=== PATIENT | female | born 1985 | race Caucasian/White ===

== ENCOUNTER 2017-04-07 17:05 | Emergency (ER) | payer MEDICAID ==
--- NOTE | 2017-04-07 18:18 | RAD ---
Indication: No bowel movement since April 02, 2017. Lower abdominal pain, bloating. Vomiting since Saturday after eating. Comparison: No relevant prior exams available on the [facility] [place] PACS for comparison. Technique: Supine and upright views of the abdomen. Report: No radiographic evidence for free air. Unremarkable bowel gas pattern. Moderate stool in the colon without significant rectal distension. No suspicious calcifications or mass effect. Unremarkable soft tissue contours. Unremarkable soft tissue contours. Clear visualized lung bases. IMPRESSION: No evidence for bowel obstruction. Negative for significant rectal distention with stool. No acute abdominal pelvic pathologic process evident.
[2017-04-07 19:11] VITALS: BP 117/56
--- NOTE | 2017-04-07 19:51 | UC ---
Abdominal Pain Female HPI - HPI Summary HPI Summary: no +bm for 4 days feels bloated, eating and currently drinking water without vomiting has tried enema and laxatives with out relief - History of Current Complaint Chief Complaint: UCAbdominalPain Stated Complaint: PERSONAL Time Seen by Provider: 04/07/17 19:26 Hx Obtained From: Patient Hx Last Menstrual Period: 2 wks ago ?: No Onset/Duration: Gradual Onset, Lasting Days - 4, Still Present Timing: Constant Severity Initially: Mild Severity Currently: Mild Location: Diffuse Radiates: No Character: Cramping Aggravating Factor(s): Food Alleviating Factor(s): Nothing Associated Signs and Symptoms: Positive: Negative Allergies/Adverse Reactions: Allergies Allergy/AdvReac Type Severity Reaction Status Date / Time No Known Allergies Allergy Verified 04/24/16 09:40 PMH/Surg Hx/FS Hx/Imm Hx Previously Healthy: Yes - Surgical History Surgery Procedure, Year, and Place: c-sections x 2 - Family History Known Family History: Positive: None - Social History Occupation: Employed Full-time Lives: With Family Alcohol Use: Occasionally Substance Use Type: None Smoking Status (MU): Light Every Day Tobacco Smoker Review of Systems Constitutional: Negative Skin: Negative Eyes: Negative ENT: Negative Respiratory: Negative Cardiovascular: Negative Gastrointestinal: Abdominal Pain, Nausea Genitourinary: Negative Motor: Negative Neurovascular: Negative Musculoskeletal: Negative Neurological: Negative Psychological: Negative All Other Systems Reviewed And Are Negative: Yes Physical Exam Triage Information Reviewed: Yes Appearance: Well-Appearing, No Pain Distress, Well-Nourished Vital Signs: Initial Vital Signs Temp 98.6 F 04/07/17 17:29 Pulse 76 04/07/17 17:29 Resp 12 04/07/17 17:29 BP 136/77 04/07/17 17:29 Pulse Ox 100 04/07/17 17:29 Vital Signs Reviewed: Yes Eye Exam: Normal Eyes: Positive: Conjunctiva Clear ENT Exam: Normal ENT: Positive: Normal ENT inspection, Hearing grossly normal, Pharynx normal, TMs normal. Negative: Nasal congestion, Nasal drainage, Trismus, Muffled/ hoarse voice Dental Exam: Normal Neck exam: Normal Neck: Positive: Supple, Nontender Respiratory Exam: Normal Respiratory: Positive: Chest non-tender, Lungs clear, Normal breath sounds, No respiratory distress, No accessory muscle use Cardiovascular Exam: Normal Cardiovascular: Positive: RRR, No Murmur, Pulses Normal, Brisk Capillary Refill Abdominal Exam: Normal Abdomen Description: Positive: No Organomegaly, Soft. Negative: CVA Tenderness (R), CVA Tenderness (L), Distended, Guarding, Hernia @, Hepatomegaly, McBurney' s Point Tenderness, Peritoneal Signs, Pulsatile Mass Bowel Sounds: Positive: Present Musculoskeletal Exam: Normal Musculoskeletal: Positive: Strength Intact, ROM Intact, No Edema Neurological Exam: Normal Neurological: Positive: Alert, Muscle Tone Normal Psychological Exam: Normal Skin Exam: Normal Diagnostics - Laboratory Diagnostic Studies Completed/Ordered: moderate amount of stool no evidence of obstruction or pathology Abd Pain Female Course/Dx - Course Course Of Treatment: increase fluids, miralax 1-2 times a day, follow with pcp - Differential Dx/Diagnosis Differential Diagnosis: Constipation, Diverticulitis, Irritable Bowel Syndrome Provider Diagnoses: constipation Discharge - Discharge Plan Condition: Stable Disposition: HOME Prescriptions: Polyethylene Glycol 3350* [Miralax*] 17 gm PO DAILY #15 packet Patient Education Materials: Simethicone (By mouth), Constipation (ED) Referrals: [facility] [place] PHYSICIAN REFERRAL [Outside] - 3 Days
== END 2017-04-07 19:52 | disposition home or self-care (01) ==
LOC: MERGE 17:05 → UCEAST 17:05
DX: K59.00 Constipation, unspecified (principal); F17.210 Nicotine dependence, cigarettes, uncomplicated
CPT/HCPCS: 74020; 99202; G0463

== ENCOUNTER 2017-04-08 22:30 | Emergency (ER) | payer MEDICAID, OTHER ==
[2017-04-09] MEDS ORDERED: NS 0.9% 1000 ML* 1,000 ML IV ONE (00:57)
[2017-04-09 02:39] LABS: Add Diff/Slide Review? Slide Review Added; Comments Flag Yes; Hematocrit 45 % (35-47); Hemoglobin 15.1 g/dl (12.0-16.0); Mean Corpuscular HGB Conc 34 g/dl (31-36); Mean Corpuscular Hemoglobin 32 pg (27-31); Mean Corpuscular Volume 95 fL (80-97); Mean Platelet Volume 9 um3 (7.4-10.4); Red Cell Distribution Width 13 % (10.5-15); White Blood Count 9.5 10^3/ul (3.5-10.8)
[2017-04-09 02:48] LABS: ALT 9 U/L (7-52); AST 16 U/L (13-39); Albumin 4.5 g/dL (3.2-5.2); Alkaline Phosphatase 51 U/L (34-104); Anion Gap 7 mmol/L (2-11); BUN/Creatinine Ratio 12.2 (8-20); Blood Urea Nitrogen 9 mg/dL (6-24); C Reactive Protein < 1.00 mg/L (< 5.00); CO2 Carbon Dioxide 27 mmol/L (22-32); Calcium 9.4 mg/dL (8.6-10.3); Chloride 103 mmol/L (101-111); EGFR African American 117.7 (>60); EGFR Non-African American 91.5 (>60); Globulin 3.1 g/dL (2-4); Glucose 88 mg/dL (70-100); Lipase 22 U/L (11.0-82.0); Potassium 3.6 mmol/L (3.5-5.0); Sodium 137 mmol/L (133-145); Total Protein 7.6 g/dL (6.4-8.9)
[2017-04-09] MEDS ORDERED: Iohexol 300* (CONTRAST) 10 ML SDV IV ONE (03:18)
[2017-04-09] MEDS ORDERED: Magnesium CITRATE* 300 ML BTL PO ONE (04:48)
--- NOTE | 2017-04-09 05:00 | ED ---
I, Oh,Isaura, scribed for Cliff Oliveira MD on 04/09/17 at 0055 . GI/ HPI - HPI Summary HPI Summary: This 31 y/o female presents to ED for persistent constipation since 6 days ago. Mild flatulance. Positive back pain, n/v x1 3 days ago, and abd bloating that is worse with PO intake. Pt reports she has had "brown water" but no bowel movement. She took multiple laxative today, which includes "Melony stool softener" pills, X-Lax, prune juice, glycerin suppositories, and enema. PSHx includes "bikini scar" and Bikini scar x2. She denies any Hx of bowel obstruction. - History of Current Complaint Chief Complaint: EDAbdPain Time Seen by Provider: 04/09/17 00:09 Stated Complaint: CONSTIPATION Hx Obtained From: Patient, Medical Records Hx Last Menstrual Period: 2 wks ago Onset/Duration: Started Weeks Ago, Still Present Timing: Constant Pain Intensity: 7 Location of Pain: RLQ, LLQ Associated Signs and Symptoms: Positive: Back Pain - lower back pain, Constipation Aggravating Factor(s): Food Alleviating Factor(s): Nothing - Allergy/Home Medications Allergies/Adverse Reactions: Allergies Allergy/AdvReac Type Severity Reaction Status Date / Time No Known Allergies Allergy Verified 04/07/17 17:34 PMH/Surg Hx/FS Hx/Imm Hx Cardiovascular History: Denies: Hx Hypertension GI History: Denies: Hx Obstructive Bowel - Surgical History Surgery Procedure, Year, and Place: c-sections x 2 Infectious Disease History: No Infectious Disease History: Denies: Traveled Outside the [place] in Last 30 Days - Family History Known Family History: Negative: Hypertension - Social History Alcohol Use: Rare Hx Substance Use: No Substance Use Type: Reports: None Hx Tobacco Use: Yes Smoking Status (MU): Light Every Day Tobacco Smoker Review of Systems Negative: Fever Positive: Abdominal Pain - lower abd pain, Vomiting, Nausea, Other - "gurgly stomach" All Other Systems Reviewed And Are Negative: Yes Physical Exam - Summary Physical Exam Summary: The patient is well-nourished in no acute distress and in no acute pain. The skin is warm and dry and skin color reflects adequate perfusion. HEENT: The head is normocephalic and atraumatic. The pupils are equal and reactive. The conjunctivae are clear and without drainage. Nares are patent and without drainage. Mouth reveals moist mucous membranes and the throat is without erythema and exudate. The external ears are intact. The ear canals are patent and without drainage. The tympanic membranes are intact. Neck is supple with full range of motion and non-tender. There are no carotid bruits. There is no neck vein distension. Respiratory: Chest is non-tender. Lungs are clear to auscultation and breath sounds are symmetrical and equal. Cardiovascular: Heart is regular rate and rhythm. There is no murmur or rub auscultated. There is no peripheral edema and pulses are symmetrical and equal. Abdomen: The abdomen is soft and MILD bilat lower quadrant tenderness. There are HYPERACTIVE bowel sounds heard in all four quadrants and there is no organomegaly palpated. Negative CVA tenderness. Musculoskeletal: There is MILD lower back pain noted. Extremities are non- tender with full range of motion. There is good capillary refill. There is no peripheral edema or calf tenderness elicited. Neurological: Patient is alert and oriented to person, place and time. The patient has symmetrical motor strength in all four extremities. Cranial nerves are grossly intact. Deep tendon reflexes are symmetrical and equal in all four extremities. Psychiatric: The patient has an appropriate affect and does not exhibit any anxiety or depression. Triage Information Reviewed: Yes Vital Signs On Initial Exam: Initial Vitals Temp Pulse Resp BP Pulse Ox 97.8 F 74 20 117/64 100 04/08/17 22:39 04/08/17 22:39 04/08/17 22:39 04/08/17 22:39 04/08/17 22:39 Vital Signs Reviewed: Yes - Ida Coma Scale Coma Scale Total: 15 Diagnostics - Vital Signs Vital Signs Temp Pulse Resp BP Pulse Ox 04/09/17 00:02 98.4 F 71 18 121/69 100 04/08/17 22:39 97.8 F 74 20 117/64 100 - Laboratory Lab Results: Lab Results 04/09/17 04/09/17 Range/Units 02:10 02:10 WBC 9.5 (3.5-10.8) 10^3/ul RBC 4.70 (4.0-5.4) 10^6/ul Hgb 15.1 (12.0-16.0) g/dl Hct 45 (35-47) % MCV 95 (80-97) fL MCH 32 H (27-31) pg MCHC 34 (31-36) g/dl RDW 13 (10.5-15) % Plt Count 256 (150-450) 10^3/ul MPV 9 (7.4-10.4) um3 Neut % (Auto) 63.8 (38-83) % Lymph % (Auto) 28.2 (25-47) % Beadle % (Auto) 5.4 (1-9) % Eos % (Auto) 0.5 (0-6) % Baso % (Auto) 2.1 H (0-2) % Absolute Neuts (auto) 6.0 (1.5-7.7) 10^3/ul Absolute Lymphs (auto) 2.7 (1.0-4.8) 10^3/ul Absolute Monos (auto) 0.5 (0-0.8) 10^3/ul Absolute Eos (auto) 0 (0-0.6) 10^3/ul Absolute Basos (auto) 0.2 (0-0.2) 10^3/ul Absolute Nucleated RBC 0 10^3/ul Nucleated RBC % 0 Sodium 137 (133-145) mmol/L Potassium 3.6 (3.5-5.0) mmol/L Chloride 103 (101-111) mmol/L Carbon Dioxide 27 (22-32) mmol/L Anion Gap 7 (2-11) mmol/L BUN 9 (6-24) mg/dL Creatinine 0.74 (0.51-0.95) mg/dL Est GFR ( Amer) 117.7 (>60) Est GFR (Non-Af Amer) 91.5 (>60) BUN/Creatinine Ratio 12.2 (8-20) Glucose 88 (70-100) mg/dL Calcium 9.4 (8.6-10.3) mg/dL Total Bilirubin 0.60 (0.2-1.0) mg/dL AST 16 (13-39) U/L ALT 9 (7-52) U/L Alkaline Phosphatase 51 (34-104) U/L C-Reactive Protein < 1.00 (< 5.00) mg/L Total Protein 7.6 (6.4-8.9) g/dL Albumin 4.5 (3.2-5.2) g/dL Globulin 3.1 (2-4) g/dL Albumin/Globulin Ratio 1.5 (1-3) Lipase 22 (11.0-82.0) U/L Result Diagrams: 04/09/17 02:10 04/09/17 02:10 Lab Statement: Any lab studies that have been ordered have been reviewed, and results considered in the medical decision making process. - CT Ab/P CT Interpretation: No Acute Changes - No owel obstruction, free air, or free fluid. Negative for diverticulitis or colitis. Normal appendix. Normal kidneys urinary tract and urinary bladder. Normal liver. Normal gallbladder. Normal speen. Normal pancreas. Normal adrenal glands. Overall no atue intra-abd abnormality. CT Interpretation Completed By: Radiologist Re-Evaluation - Re-Evaluation First Eval Re-Evaluation Time: 04:44 Comment: MD in room to share lab work and CT imaging studies. Hard copies of blood work and CT are provided to patient. Plan of care involving discharge and outpatient f/u is discussed, and pt is agreeable. GIGU Course/Dx - Course Assessment/Plan: This 31 y/o female presents to ED for 6 days old constipation and abd bloating. Pt reports taking multiple laxatives. Pt was seen at Urgent Care 2 days ago for similar complaint and had Abd X-ray taken, which indicates no stool in rectum but present in upper colon. CT Ab/P indicates normal. Pt is stable for discharge. - Diagnoses Differential Diagnoses - Female: Appendicitis, Bowel Obstruction, Constipation, Colitis Provider Diagnoses: Constipation Discharge - Discharge Plan Condition: Stable Disposition: HOME Patient Education Materials: Constipation (ED), Magnesium Citrate (By mouth) Referrals: Javier Salter MD [Primary Care Provider] - 2 Days Additional Instructions: Drink a half a bottle of magnesium citrate today and drink rest of the bottle tomorrow. The documentation as recorded by the Donavon medina Soohyun accurately reflects the service I personally performed and the decisions made by me, Cliff Oliveira MD.
[2017-04-09 05:32] VITALS: BP 100/70
--- NOTE | 2017-04-09 09:36 | RAD ---
Indication: Bilateral abdominal pain. Constipation. Contrast: Administered 92.8 ml of Contrast -- mgi/ml CT of the abdomen and pelvis was performed after oral and IV contrast administration. Lung bases demonstrate no pleural fluid, nodules or masses. Heart is of normal size without evidence of pericardial effusion. The liver is normal in size. No focal lesions or intrahepatic duct dilatation is noted. The gallbladder demonstrates no calcified gallstones. No pericholecystic fluid or wall thickening is identified. The common duct is not dilated. The pancreas demonstrates no mass or pancreatic duct dilatation. Spleen is normal in size. No adrenal masses are noted. The kidneys demonstrate symmetric nephrograms without focal lesions. No hydronephrosis is noted. No dilated loops of bowel are noted. CT of the pelvis demonstrates no retroperitoneal or pelvic lymphadenopathy. Appendix is normal. Follicular cysts are noted in both ovaries. Urinary bladder is unremarkable. Diverticulosis without definite evidence of diverticulitis. Bilateral inguinal lymph nodes are noted measuring up to 10 mm on the right and 6 mm on the left. The bony structures are otherwise unremarkable. IMPRESSION: No abnormal masses or fluid collections are noted. Bilateral inguinal lymph nodes are noted.
== END 2017-04-09 05:38 | disposition home or self-care (01) ==
LOC: MERGE 22:30 → ED 22:30
DX: K59.00 Constipation, unspecified (principal); M54.5 Low back pain; R11.2 Nausea with vomiting, unspecified; F17.210 Nicotine dependence, cigarettes, uncomplicated
CPT/HCPCS: 36415; 74177; 80053; 83690; 85025; 86140; 96360; 99283; A9270-GY; Q9967

== ENCOUNTER 2017-06-01 12:58 | Emergency (ER) | payer OTHER ==
--- NOTE | 2017-06-01 14:40 | RAD ---
INDICATION: Left rib pain COMPARISON: None TECHNIQUE: Multiple views of the ribs were obtained. FINDINGS: Bones: There is no evidence of acute rib fracture. LUNGS: The lungs are clear. There is no pneumothorax. Pleural spaces: There is no evidence of hemothorax. Other: None IMPRESSION: NEGATIVE EXAMINATION
[2017-06-01 15:01] VITALS: BP 128/64
--- NOTE | 2017-06-01 16:03 | UC ---
Shortness of Breath HPI - HPI Summary HPI Summary: Patient presents to the with CC of cough x 1 week and now with left rib pain. She states she awoke last night while coughing and upon getting out of bed she tripped and fell onto her L rib. She notes to 8/10 pain and is unable to breathe deep. Cough x 1 week without sputum production. SOB related to recent rib injury. She denies post nasal drip, eye pain, ear pain or throat pain. Pain is discretely located over the upper 3rd rib. - History of Current Complaint Chief Complaint: UCRespiratory Stated Complaint: RIB PAIN COUGH Time Seen by Provider: 06/01/17 14:16 Hx Obtained From: Patient Hx Last Menstrual Period: 05/23/17 ?: No Onset/Duration: Sudden Onset Timing: Constant Current Severity: Mild Associated Signs & Symptoms: Positive: Cough (Nonproductive) - Risk Factors Pulmonary Embolism: Negative Cardiac: Negative Pseudomonas: Negative Tuberculosis: Negative - Allergy/Home Medications Allergies/Adverse Reactions: Allergies Allergy/AdvReac Type Severity Reaction Status Date / Time No Known Allergies Allergy Verified 06/01/17 13:24 PMH/Surg Hx/FS Hx/Imm Hx Previously Healthy: Yes - Surgical History Surgical History: Yes Surgery Procedure, Year, and Place: c-sections x 2 - Family History Known Family History: Positive: Other - brothers w/ gallbladder disease Negative: Hypertension - Social History Occupation: Employed Full-time Lives: With Family Alcohol Use: Rare Substance Use Type: None, Other Smoking Status (MU): Light Every Day Tobacco Smoker Amount Used/How Often: 1/2PPD Review of Systems Constitutional: Negative Respiratory: Shortness Of Breath, Cough Cardiovascular: Negative Genitourinary: Negative Motor: Negative Neurovascular: Negative Musculoskeletal: Arthralgia - left rib pain Neurological: Negative Psychological: Negative Is Patient Immunocompromised?: No All Other Systems Reviewed And Are Negative: Yes Physical Exam Triage Information Reviewed: Yes Appearance: Well-Appearing, Well-Nourished Vital Signs: Initial Vital Signs Temp 98.3 F 06/01/17 13:25 Pulse 82 06/01/17 13:25 Resp 18 06/01/17 13:25 BP 132/76 06/01/17 13:25 Pulse Ox 99 06/01/17 13:25 Vital Signs Reviewed: Yes Eye Exam: Normal Eyes: Positive: Conjunctiva Clear ENT Exam: Normal ENT: Negative: Pharynx normal, Nasal drainage, TMs normal, Muffled/hoarse voice Neck exam: Normal Neck: Positive: Supple, No Lymphadenopathy Respiratory Exam: Normal Respiratory: Positive: Chest non-tender, Lungs clear, Normal breath sounds Cardiovascular Exam: Normal Cardiovascular: Positive: RRR Musculoskeletal Exam: Normal Musculoskeletal: Positive: Strength Intact Neurological Exam: Normal Neurological: Positive: Alert Psychological: Positive: Normal Response To Family, Age Appropriate Behavior Skin Exam: Normal Shortness of Breath Dx - Course Course Of Treatment: Patient presents with left sided rib pain not improved with OTC. She is given pain control, spirometry and abx d/t not breathing deep and cough. She is Ok with plan. - Differential Dx/Diagnosis Differential Diagnosis/HQI/PQRI: Bronchitis, Chest Wall Pain Provider Diagnoses: Rib Contusion Discharge - Discharge Plan Condition: Stable Disposition: HOME Prescriptions: Amoxicillin/Clavulanate TAB* [Augmentin TAB 875*] 875 mg PO BID #10 tab Benzonatate CAP* [Tessalon 100 MG CAP*] 100 mg PO TID #12 cap HYDROcodone/ACETAMIN 5-325 MG* [[place] 5-325 TAB*] 1 tab PO Q6H PRN #12 tab MDD 4 PRN Reason: Pain Patient Education Materials: Acute Cough (ED), Rib Contusion (ED) Referrals: Javier Salter MD [Primary Care Provider] - Additional Instructions: Humidifier in the home will help. Warm water with lemon and honey or tea for sore throat and congestion. Take medications as prescribed. IF symptoms do not improve in 1 week or you develop fevers, return to the . Take pain medication only as directed Tessalone up to three times daily Augmentin twice daily with food - for 5 days
== END 2017-06-01 15:05 | disposition home or self-care (01) ==
LOC: UCEAST 12:58
DX: S30.1XXA Contusion of abdominal wall, initial encounter (principal); F17.210 Nicotine dependence, cigarettes, uncomplicated; W01.0XXA Fall on same level from slipping, tripping and stumbling without subsequent striking against object, initial encounter; Y92.9 Unspecified place or not applicable
CPT/HCPCS: 99212; G0463

== ENCOUNTER 2017-06-12 10:54 | Emergency (ER) | payer OTHER ==
[2017-06-12 11:15] VITALS: BP 117/67
--- NOTE | 2017-06-12 12:41 | UC ---
Respiratory Complaint HPI - HPI Summary HPI Summary: PT HAS BEEN COUGHING FOR OVER A MONTH. ABOUT 2 WEEKS AGO FELL AND STRUCK HER LEFT RIBS. WAS SEEN HERE 06/01 AND HAD NEG XRAYS. WAS PLACED ON AUGMENTIN, TESSALON AND VICODIN BUT PT SX HAVE PERSISTED. NO FEVER. HAD SOME NASAL CONGESTION INITIALLY BUT THAT IS NOW RESOLVED. HAS NOT HAD A TDAP BOOSTER. - History of Current Complaint Chief Complaint: UCRespiratory Stated Complaint: RESP COMPLAINT Time Seen by Provider: 06/12/17 10:59 Hx Obtained From: Patient Hx Last Menstrual Period: 06/12/17 Onset/Duration: Gradual Onset, Lasting Weeks, Still Present Timing: Constant Severity Initially: Moderate Severity Currently: Moderate Pain Intensity: 4 Pain Scale Used: 0-10 Numeric Character: Cough: Nonproductive Aggravating Factors: Recumbent Position Alleviating Factors: Nothing Associated Signs And Symptoms: Negative: Dyspnea, Fever, Chills, Pleuritic Chest Pain, Wheezing, Hemoptysis, URI, Nasal Congestion - Allergies/Home Medications Allergies/Adverse Reactions: Allergies Allergy/AdvReac Type Severity Reaction Status Date / Time No Known Allergies Allergy Verified 06/12/17 11:12 Home Medications: Home Medications Ibuprofen [Ibuprofen 200 MG] 600 mg PO PRN 06/12/17 [History] PMH/Surg Hx/FS Hx/Imm Hx Previously Healthy: Yes - Surgical History Surgical History: Yes Surgery Procedure, Year, and Place: c-sections x 2 - Family History Known Family History: Positive: Other - brothers w/ gallbladder disease Negative: Hypertension - Social History Alcohol Use: Rare Substance Use Type: None, Other Smoking Status (MU): Heavy Every Day Tobacco Smoker Amount Used/How Often: 1/2PPD Review of Systems Constitutional: Negative ENT: Negative Respiratory: Cough Cardiovascular: Negative Gastrointestinal: Negative Musculoskeletal: Other: - LEFT RIB PAIN All Other Systems Reviewed And Are Negative: Yes Physical Exam Triage Information Reviewed: Yes Appearance: Well-Appearing, No Pain Distress, Well-Nourished Vital Signs: Initial Vital Signs Temp 98.5 F 06/12/17 11:07 Pulse 77 06/12/17 11:07 Resp 16 06/12/17 11:07 BP 117/67 06/12/17 11:07 Pulse Ox 98 06/12/17 11:07 Vital Signs Reviewed: Yes Eyes: Positive: Conjunctiva Clear ENT: Positive: Hearing grossly normal, Pharynx normal, TMs normal Neck: Positive: Supple, Nontender, No Lymphadenopathy Respiratory Exam: Normal Cardiovascular Exam: Normal Abdomen Description: Positive: Soft Musculoskeletal: Positive: No Edema Neurological: Positive: Alert Psychological: Positive: Normal Response To Family, Age Appropriate Behavior Skin: Negative: rashes UC Diagnostic Evaluation - Laboratory O2 Sat by Pulse Oximetry: 98 Respiratory Course/Dx - Differential Dx/Diagnosis Provider Diagnoses: CHRONIC COUGH Discharge - Discharge Plan Condition: Stable Disposition: HOME Prescriptions: guaiFENesin/CODIEN 100MG-10MG* [Robitussin AC 100Mg-10Mg*] 5 - 10 ml PO Q6H PRN #150 ml MDD 40ML PRN Reason: Cough predniSONE TAB* [Deltasone TAB*] 40 mg PO DAILY #10 tab Patient Education Materials: Chronic Cough (ED) Referrals: Javier Salter MD [Primary Care Provider] - If Needed Additional Instructions: GIVEN THE PROLONGED NATURE OF YOUR COUGH WILL SWAB FOR PERTUSSIS. IN THE MEANTIME WILL TREAT WITH STEROIDS AND CODEINE COUGH MEDICINE. SEEK FOLLOW-UP IF YOU ARE NOT IMPROVING OVER THE NEXT 1-2 WEEKS.
--- NOTE | 2017-06-15 07:25 | UC ---
Progress - Progress Note Progress Note: Pertussis swab negative, please inform patient.
== END 2017-06-12 12:37 | disposition home or self-care (01) ==
LOC: UCEAST 10:54
DX: R05 Cough (principal); F17.210 Nicotine dependence, cigarettes, uncomplicated; Z79.891 Long term (current) use of opiate analgesic
CPT/HCPCS: 87798; 99212; G0463

== ENCOUNTER 2018-11-12 15:23 | Emergency (ER) | payer OTHER ==
[2018-11-12 15:31] VITALS: BP 124/58
--- NOTE | 2018-11-12 16:49 | UC ---
Back Pain HPI - HPI Summary HPI Summary: SLIPPED AND FELL ON THE ICE YESTERDAY. LANDED DIRECTLY ON HER BUTTOCKS. HAS PERSISTENT PAIN. UNABLE TO SIT WITHOUT DISCOMFORT. DENIES HEAD TRAUMA. - History of Current Complaint Chief Complaint: UCBackPain Stated Complaint: BACK PAIN Time Seen by Provider: 11/12/18 16:44 Hx Obtained From: Patient Hx Last Menstrual Period: 06/12/17 Onset/Duration: Sudden Onset, Lasting Days - 1 DAY, Still Present Timing: Constant Severity Initially: Moderate Severity Currently: Moderate Pain Intensity: 8 Pain Scale Used: 0-10 Numeric Back Pain: Is Discrete @ - TAILBONE Character: Sharp Aggravating Factor(s): Other - SITTING Alleviating Factor(s): Rest Associated Signs And Symptoms: Positive: Negative - Allergies/Home Medications Allergies/Adverse Reactions: Allergies Allergy/AdvReac Type Severity Reaction Status Date / Time No Known Allergies Allergy Verified 11/12/18 15:31 Home Medications: Home Medications NK [No Home Medications Reported] 11/12/18 [History Confirmed 11/12/18] PMH/Surg Hx/FS Hx/Imm Hx Previously Healthy: Yes - Surgical History Surgical History: Yes Surgery Procedure, Year, and Place: c-sections x 2 - Family History Known Family History: Positive: Other - brothers w/ gallbladder disease Negative: Hypertension - Social History Alcohol Use: None Substance Use Type: None Smoking Status (MU): Heavy Every Day Tobacco Smoker Amount Used/How Often: 1/2PPD Review of Systems All Other Systems Reviewed And Are Negative: Yes Constitutional: Positive: Negative Skin: Positive: Negative Respiratory: Positive: Negative Cardiovascular: Positive: Negative Gastrointestinal: Positive: Negative Musculoskeletal: Positive: Other: - PAIN TAILBONE Physical Exam Triage Information Reviewed: Yes Appearance: Well-Appearing, Well-Nourished, Pain Distress - MODERATE Vital Signs: Initial Vital Signs Temp 97.9 F 11/12/18 15:27 Pulse 73 11/12/18 15:27 Resp 20 11/12/18 15:27 BP 124/58 11/12/18 15:27 Pulse Ox 98 11/12/18 15:27 Vital Signs Reviewed: Yes Eyes: Positive: Conjunctiva Clear ENT: Positive: Hearing grossly normal Neck: Positive: Supple Respiratory: Positive: No respiratory distress, No accessory muscle use Cardiovascular: Positive: Pulses Normal Abdomen Description: Positive: Soft Musculoskeletal: Positive: No Edema Neurological: Positive: Alert Psychological: Positive: Age Appropriate Behavior Skin: Negative: Rashes Diagnostics - Radiology SACRUM/COCCYX XRAYS Radiology Interpretation Completed By: Radiologist Summary of Radiographic Findings: NO EVIDENCE FOR FRACTURE. Back Pain Course/Dx - Differential Dx/Diagnosis Provider Diagnosis: Coccyx contusion Discharge - Sign-Out/Discharge Documenting (check all that apply): Patient Departure All imaging exams completed and their final reports reviewed: Yes - Discharge Plan Condition: Stable Disposition: HOME Patient Education Materials: Coccyx Injury (ED), Contusion in Adults (ED) Referrals: [facility] [Outside] - If Needed Additional Instructions: XRAY TODAY NEGATIVE FOR FRACTURE OR DISLOCATION. YOUR SYMPTOMS SHOULD IMPROVE SIGNIFICANTLY OVER THE NEXT 1-2 WEEKS. IF YOU DO NOT IMPROVE EXPECTED FOLLOW- UP WITH YOUR PCP. YOU MAY BENEFIT FROM REPEAT IMAGING AT THAT TIME. OTC IBUPROFEN OR ALEVE NEEDED FOR DISCOMFORT. REST, ICE. CALL THE NUMBER BELOW FOR ASSISTANCE IN ESTABLISHING WITH A PCP An additional resource available to assist in finding the appropriate physician for your health care needs is [facility] ([facility]). You may contact them by calling [phone]. - Billing Disposition and Condition Condition: STABLE Disposition: Home
== END 2018-11-12 17:40 | disposition home or self-care (01) ==
LOC: UCEAST 15:23
DX: S30.0XXA Contusion of lower back and pelvis, initial encounter (principal); F17.210 Nicotine dependence, cigarettes, uncomplicated; W00.0XXA Fall on same level due to ice and snow, initial encounter; Y92.9 Unspecified place or not applicable
CPT/HCPCS: 72220; 99211; G0463